=== PATIENT | female | born 1990 ===

== ENCOUNTER 2020-01-04 02:00 | Inpatient (IN) | payer BC, OTHER ==
[2020-01-04] MEDS: ELECTROLYTE-148 SOLN 1,000 ML IV SCH (02:45)
[2020-01-04 03:20] VITALS: BMI 23.6
[2020-01-04 03:20] LABS: BASO % 0.1 % (0-2.0); EOS % 0.2 % (0-4.5); HEMATOCRIT 40.2 % (32.4-45.2); HEMOGLOBIN 13.7 GM/dL (10.7-15.3); LYMPH % 11.2 % (8-40); MCH 30.9 pg (25.7-33.7); MEAN CELL VOLUME 90.7 fl (80-96); MEAN PLT VOLUME 10.2 fl (7.5-11.1); MONO % 5.7 % (3.8-10.2); NEUT % 82.8 % (42.8-82.8); PLATELET COUNT 154 K/MM3 (134-434); RBC 4.44 M/mm3 (3.60-5.2); RDW 13.8 % (11.6-15.6); WHITE BLOOD COUNT 13.5 K/mm3 (4.0-10.0)
[2020-01-04 03:37] LABS: INR 0.86 (0.83-1.09); PROTHROMBIN TIME (PATIENT) 10.6 SEC (9.7-13.0)
[2020-01-04 03:39] LABS: POTASSIUM 3.7 mmol/L (3.5-5.1)
[2020-01-04 03:40] LABS: ACTIVATED PTT 25.2 SECONDS (25.2-36.5)
[2020-01-04 03:41] LABS: BLOOD UREA NITROGEN 7.3 mg/dL (7-18); CALCIUM 8.9 mg/dL (8.5-10.1)
[2020-01-04 04:18] LABS: CREATININE 0.4 mg/dL (0.55-1.3)
[2020-01-04] MEDS ORDERED: PROMETHAZINE HCL 25 MG/1 ML VIAL IVPB ONE (05:45)
[2020-01-04] MEDS ORDERED: BUTORPHANOL TARTRATE 1 MG/ML VIAL IVPB ONE (05:45)
[2020-01-04] MEDS ORDERED: BUTORPHANOL TARTRATE 1 MG/ML VIAL ONE (05:50)
[2020-01-04] MEDS ORDERED: PROMETHAZINE HCL 25 MG/1 ML VIAL ONE (05:50)
[2020-01-04] MEDS ORDERED: ELECTROLYTE-148 SOLN 1,000 ML IV SCH (09:15)
[2020-01-04] MEDS ORDERED: FENTANYL/BUPIVACAINE/NS/PF - PCEA - 50 ML DISP.SYRIN EP ONE (10:04)
[2020-01-04] MEDS ORDERED: PCA PUMP NR ONE (10:04)
[2020-01-04] MEDS ORDERED: LIDO 2%/EPI 1:200000 PRESRVFRE (20 ML SDVIAL) ONE (10:06)
[2020-01-04] MEDS ORDERED: BUPIVACAINE HCL/PF 0.25% (2.5MG/ML) 10 ML VIAL ONE (10:06)
[2020-01-04] MEDS ORDERED: GENTAMICIN 100 MG/100 ML BAG IVPB ONE (11:35)
[2020-01-04] MEDS ORDERED: ACETAMINOPHEN 1000 MG/100 ML VIAL (NON FORMULARY) IVPB ONE (11:35)
[2020-01-04] MEDS ORDERED: GENTAMICIN SO4 80 MG/2 ML VIAL ONE ×2 (11:36→19:23)
[2020-01-04] MEDS ORDERED: CLINDAMYCIN PHOSPHATE 600 MG/4 ML VIAL ONE (11:36)
[2020-01-04] MEDS ORDERED: ACETAMINOPHEN INJECTION 100 ML IVPB ONE (11:37)
[2020-01-04] MEDS: CLINDAMYCIN 600MG PREMIX IVPB 600 MG/50 ML BAG IVPB SCH ×3 (12:05→22:43)
[2020-01-04] MEDS ORDERED: OXYTOCIN 20 UNITS in 0.9% NS 20 UNIT/1,000 ML INFUS.BAG IV ONE ×2 (13:01→16:13)
[2020-01-04] MEDS: OXYTOCIN 20 UNITS in 0.9% NS 20 UNIT/1,000 ML INFUS.BAG IV SCH ×2 (13:40→16:15)
[2020-01-04] MEDS ORDERED: MISOPROSTOL 200 MCG TABLET ONE (13:44)
[2020-01-04] MEDS ORDERED: MISOPROSTOL 200 MCG TABLET NR ONE (13:45)
[2020-01-04] MEDS ORDERED: BENZOCAINE 20% 57 GM BOTTLE TP PRN (13:59)
[2020-01-04] MEDS ORDERED: METHYLERGONOVINE MALEATE 0.2 MG/1 ML AMP IM PRN (13:59)
[2020-01-04] MEDS ORDERED: WITCH HAZEL 50% (TUCKS) 40 PAD/JAR PAD TP PRN (13:59)
[2020-01-04] MEDS ORDERED: BENZOCAINE 28 GM HEMORRHOIDAL OINTMENT TP PRN (13:59)
[2020-01-04] MEDS ORDERED: BISACODYL 10 MG SUPP.RECT RC PRN (13:59)
[2020-01-04] MEDS ORDERED: D5W-LR W/ 20 UNITS OXYTOCIN 20 UNIT/1,000 ML INFUS.BAG IV SCH (14:00)
[2020-01-04 14:21] LABS: CORD BASE EXCESS -5.8 mmol/L (0-2); CORD HCO3 20.1 mmHg (20-29); CORD PCO2 40.9 mmHg (30-78); CORD pH 7.309 (7.14-7.44)
[2020-01-04 14:23] LABS: CORD BASE EXCESS -6.6 mmol/L (0-2); CORD HCO3 19.2 mmHg (20-29); CORD PCO2 39.7 mmHg (30-78); CORD pH 7.303 (7.14-7.44)
[2020-01-04] MEDS ORDERED: NALOXONE HCL 0.4 MG/ML VIAL IVPUSH PRN (14:42)
[2020-01-04] MEDS: ENOXAPARIN NA (PORCINE) 40 MG/0.4 ML DISP.SYRIN SQ SCH (14:43)
[2020-01-04] MEDS ORDERED: FENTANYL/BUPIVACAINE/NS/PF - PCEA - 50 ML DISP.SYRIN EP SCH ×2 (14:45→15:24)
[2020-01-04] MEDS: IBUPROFEN 600 MG TABLET (FP) PO PRN ×2 (15:05→21:15)
[2020-01-04] MEDS ORDERED: FERROUS SO4 325 MG TABLET (FP) ONE (17:33)
[2020-01-04] MEDS: FERROUS SO4 325 MG TABLET (FP) PO SCH (17:35)
[2020-01-04] MEDS ORDERED: ACETAMINOPHEN 325 MG TABLET (FP) ONE ×2 (17:53→20:49)
[2020-01-04] MEDS: ACETAMINOPHEN 325 MG TABLET (FP) PO PRN ×2 (17:55→21:15)
[2020-01-04] MEDS: GENTAMICIN 80 MG PREMIXED IVPB 80 MG/100 ML BAG IVPB SCH (19:27)
[2020-01-04] MEDS ORDERED: IBUPROFEN 600 MG TABLET (FP) PO ONE (20:48)
[2020-01-05] MEDS: GENTAMICIN 80 MG PREMIXED IVPB 80 MG/100 ML BAG IVPB SCH ×2 (03:45→11:31)
[2020-01-05] MEDS: CLINDAMYCIN 600MG PREMIX IVPB 600 MG/50 ML BAG IVPB SCH ×4 (04:39→17:44)
[2020-01-05] MEDS: IBUPROFEN 600 MG TABLET (FP) PO PRN ×2 (04:39→19:25)
[2020-01-05] MEDS: ACETAMINOPHEN 325 MG TABLET (FP) PO PRN ×2 (04:40→19:26)
[2020-01-05] MEDS: ELECTROLYTE-148 SOLN 1,000 ML IV SCH (04:41)
[2020-01-05 07:38] LABS: BASO % 0.1 % (0-2.0); EOS % 0.2 % (0-4.5); HEMATOCRIT 31.6 % (32.4-45.2); HEMOGLOBIN 10.7 GM/dL (10.7-15.3); LYMPH % 8.7 % (8-40); MCH 30.7 pg (25.7-33.7); MCHC 33.7 g/dl (32.0-36.0); MEAN CELL VOLUME 91.1 fl (80-96); MEAN PLT VOLUME 10.1 fl (7.5-11.1); PLATELET COUNT 129 K/MM3 (134-434); RBC 3.47 M/mm3 (3.60-5.2); RDW 13.8 % (11.6-15.6)
[2020-01-05] MEDS: PRENATAL VITAMINS W/ FOLIC ACID TABLET (FP) PO SCH (09:10)
[2020-01-05] MEDS: FERROUS SO4 325 MG TABLET (FP) PO SCH ×2 (09:10→17:35)
[2020-01-05] MEDS: ENOXAPARIN NA (PORCINE) 40 MG/0.4 ML DISP.SYRIN SQ SCH (09:47)
[2020-01-05] MEDS ORDERED: SENNOSIDES/DOCUSATE COMBO (SENNA PLUS) TABLET (UD) PO PRN (22:00)
[2020-01-06] MEDS: ACETAMINOPHEN 325 MG TABLET (FP) PO PRN ×3 (03:29→16:27)
[2020-01-06] MEDS: IBUPROFEN 600 MG TABLET (FP) PO PRN ×3 (03:29→16:26)
[2020-01-06] MEDS: PRENATAL VITAMINS W/ FOLIC ACID TABLET (FP) PO SCH (09:03)
[2020-01-06] MEDS: FERROUS SO4 325 MG TABLET (FP) PO SCH (09:03)
[2020-01-06 13:42] VITALS: BP 96/50; PULSE 91; TEMP 98.4
== END 2020-01-06 17:15 | disposition home or self-care (01) | DRG 805 ==
LOC: JDEL 02:00 → JLDR 02:35 → J3W 21:45
PROVIDERS: ADMIT Obstetrics & Gynecology; ATTEND Obstetrics & Gynecology
PROC: 10907ZC Drainage of Amniotic Fluid, Therapeutic from Products of Conception, Via Natural or Artificial Opening (ICD-10-PCS; principal; 2020-01-04)
PROC: 10E0XZZ Delivery of Products of Conception, External Approach (ICD-10-PCS; 2020-01-04)
PROC: 0W8NXZZ Division of Female Perineum, External Approach (ICD-10-PCS; 2020-01-04)
DX: O34.219 Maternal care for unspecified type scar from previous cesarean delivery (principal); O41.1230 Chorioamnionitis, third trimester, not applicable or unspecified; Z37.0 Single live birth; O75.2 Pyrexia during labor, not elsewhere classified; O72.1 Other immediate postpartum hemorrhage; O42.02 Full-term premature rupture of membranes, onset of labor within 24 hours of rupture; Z3A.39 39 weeks gestation of pregnancy; O76 Abnormality in fetal heart rate and rhythm complicating labor and delivery; O70.1 Second degree perineal laceration during delivery; Z91.048 Other nonmedicinal substance allergy status
CPT/HCPCS: 36415; 36600; 59409; 80048; 82803; 85025; 85610; 85730; 86780; 86850; 86870; 86900; 86901; 86902; 88307-TC; C9803; J0131; U0003